=== PATIENT | female | born 2005 | race Caucasian/White ===

== ENCOUNTER 2024-10-25 17:39 | Emergency (ER) | payer OTHER ==
[2024-10-25] MEDS: Sodium Chloride 0.9% 1,000 ML IV ONE (18:42)
[2024-10-25 18:49] LABS: BASOPHILS PERCENT AUTO 0.3 % (0.0-1.0); EOSINOPHILS ABSOLUTE AUTO 0.1 K/mm3 (0.0-0.4); EOSINOPHILS PERCENT AUTO 0.5 % (0.0-6.0); HEMATOCRIT 43.8 % (37.0-47.0); HEMOGLOBIN 14.1 gm/dl (12.0-16.0); IMMATURE GRAN ABSOLUTE AUTO 0.05 K/mm3 (0.00-0.05); IMMATURE GRAN PERCENT AUTO 0.5 % (0.0-0.4); LYMPHOCYTES ABSOLUTE AUTO 2.3 K/mm3 (1.0-4.8); LYMPHOCYTES PERCENT AUTO 24.8 % (24.0-44.0); MEAN CORPUSCULAR HEMOGLOBIN 26.5 pg (28.0-32.0); MEAN CORPUSCULAR HGB CONC 32.2 g/dl (32.0-36.0); MEAN CORPUSCULAR VOLUME 82.2 fl (83.0-99.0); MEAN PLATELET VOLUME 9.8 fl (9.4-12.3); MONOCYTES ABSOLUTE AUTO 0.7 K/mm3 (0.0-0.8); MONOCYTES PERCENT AUTO 7.9 % (0.0-8.0); NEUTROPHILS ABSOLUTE AUTO 6.1 K/mm3 (1.8-7.7); PLATELET COUNT,PLT 335 K/mm3 (150-400); RED BLOOD CELL COUNT 5.33 M/mm3 (4.10-5.30); WHITE BLOOD CELL COUNT,WBC 9.27 K/mm3 (3.9-11.3)
[2024-10-25 19:10] LABS: A/G RATIO 0.9 (1-2); ALBUMIN 3.5 g/dl (3.4-5.0); ANION GAP 14.7 (5-15); BILIRUBIN TOTAL 0.5 mg/dL (0.2-1.0); CREATININE 0.8 mg/dL (0.55-1.02); EST CRCL DRUG DOSING (CG) 109.08 mL/min; POTASSIUM,K 3.7 mEq/L (3.5-5.1); PROTEIN TOTAL,TP 7.4 g/dl (6.4-8.2)
[2024-10-25] MEDS: Iopamidol 755 Mg/ML 100 ML Bottle IVPUSH ONE (19:29)
[2024-10-25] MEDS: Sodium Chloride 0.9% 45 ML IV SCH (19:29)
[2024-10-25] MEDS: Sodium Chloride 0.9% 10 ML Syringe FLUSH PRN (19:29)
== END 2024-10-25 20:16 | disposition home or self-care (01) ==
LOC: JD.ED 17:39
DX: R04.2 Hemoptysis (principal)
CPT/HCPCS: 36415; 71275; 80053; 81025; 85025; 96360; 99285; J7030; Q9967; 99283